=== PATIENT | female | born 1960 | race Caucasian/White ===

== ENCOUNTER → 2018-08-28 09:27 | Outpatient (CLI) | payer BC, SELFPAY ==
--- NOTE | 2018-08-28 09:34 | US_ITS ---
STUDY: RENAL ULTRASOUND - COMPLETE REASON FOR EXAM: Female, 58 years old. History of renal cyst. TECHNIQUE: Ultrasound evaluation of the kidneys was performed with real-time and static beltran-scale imaging. COMPARISON: Comparison is made with prior CT scan dated March 06, 2016. FINDINGS: RIGHT KIDNEY: Normal location of the right kidney, which is normal in size. The right kidney measures 10.5 cm x 5 cm x 5.7 cm. There is a normal cortex of the right kidney. The renal cortex measures 1.9 cm. There is a 7 mm x 5 mm x 8 mm renal cyst. This is in the lower pole. There are no right renal calculi. There is mild hydronephrosis of the right kidney. DISTAL RIGHT URETER: There is non-visualization of the distal right ureter. There is no demonstrated right ureterovesical junction calculus. There is a visualized right ureteral jet. LEFT KIDNEY: Normal location of the left kidney, which is normal in size. The left kidney measures 11.4 cm x 6.6 cm x 4.5 cm. There is a normal cortex of the left kidney. The renal cortex measures 2.0 cm. There is no left renal mass or cyst. There are no left renal calculi. There is no left hydronephrosis. DISTAL LEFT URETER: There is non-visualization of the distal left ureter. There is no demonstrated left ureterovesical junction calculus. There is a visualized left ureteral jet. BLADDER: The distended urinary bladder has a volume of 19.3 ml. There is a normal wall thickness of the distended urinary bladder. There is no demonstrated mass within the urinary bladder. There are no demonstrated bladder calculi. US/Kidney and Bladder IMPRESSION: Mild right hydronephrosis. Subcentimeter right renal cyst. Electronically Signed: Ricky Bhat MD at 14:44 EST , Service support ,
== END ==
PROVIDERS: Family Provider Family Medicine; PCP Family Medicine; Referring Provider Urology; Visit Provider Urology
DX: N28.1 Cyst of kidney, acquired (principal)
CPT/HCPCS: 76770

== ENCOUNTER → 2020-11-10 20:17 | Outpatient (CLI) | payer BC, SELFPAY | PROVIDERS: PCP Family Medicine; Referring Provider Psychiatry & Neurology Sleep Medicine; Visit Provider Psychiatry & Neurology Sleep Medicine | DX: G47.33 Obstructive sleep apnea (adult) (pediatric) (principal); G47.10 Hypersomnia, unspecified; Z99.89 Dependence on other enabling machines and devices | CPT/HCPCS: 95810 ==

== ENCOUNTER → 2021-11-11 | Outpatient (CLI) | payer BC, SELFPAY ==
--- NOTE | 2021-11-11 16:06 | US_ITS ---
INDICATION: KIDNEY CYST EXAMINATION: US Kidney(s) complete (eg, kidneys and bladder) TECHNIQUE: Santacruz scale and color doppler images were obtained of the kidneys. COMPARISON: None. FINDINGS: RIGHT KIDNEY: Measures 10.6 cm in length.. There is no hydronephrosis. No shadowing calculus, focal mask or perinephric collection is demonstrated. There is a simple 8 mm anechoic cyst. LEFT KIDNEY: Measures 10.6 cm in length.. There is no hydronephrosis. No shadowing calculus, focal lesion or perinephric collection is demonstrated. URINARY BLADDER: No acute abnormality. US/Kidney and Bladder IMPRESSION: Normal renal ultrasound. Simple 8 mm cyst in the right kidney. Electronically Signed: Cooper Wallace MD at 17:05 EDT ,
== END | disposition home or self-care (01) ==
PROVIDERS: PCP Family Medicine; Referring Provider Urology; Visit Provider Urology
DX: N28.1 Cyst of kidney, acquired (principal)
CPT/HCPCS: 76770

== ENCOUNTER 2022-11-10 11:12 | Emergency (ER) | payer BC, SELFPAY ==
[2022-11-10 11:13] VITALS: BP 152/92; PULSE 79; RESP 18; TEMP 36.1; O2SAT 98
--- NOTE | 2022-11-10 11:42 | EKG12_ITS ---
Test Reason : CP Blood Pressure : / mmHG Vent. Rate : 072 BPM Atrial Rate : 072 BPM P-R Int : 168 ms QRS Dur : 088 ms QT Int : 406 ms P-R-T Axes : 038 020 046 degrees QTc Int : 444 ms Normal sinus rhythm Normal ECG Confirmed by KIERA DE LEON, SEBAS ([id number]), electronic news gathering editor FLOYD PANDA ([id number]) on 11/13/2022 2:39:57 PM Referred By: LEAH/ORION Confirmed By:KAREN QURESHI MD
--- NOTE | 2022-11-10 11:50 | EX.ED.DYSGE1 ---
HPI <HELENE Carcamo - Last Filed: 11/10/22 14:50> History of Present Illness Chief Complaint: Chest Pain Narrative Narrative: Patient is a 62-year-old female with history of hypertension, hyperlipidemia, hypothyroidism, diabetes who presents to the emergency department with 1 to 2 hours of epigastric pain that radiates to her back that occurred yesterday. Patient states for the last 48 hours has been very stressed she had a lot of work, things on my plate. Patient states yesterday she was relaxing, she was resting when she felt pain to her epigastric area that radiated to her back, she felt cold sweats, nauseous. She did get up and help her do chores, she states that she continued to have the pain, she then went back inside, the nausea and sweating decreased, she then fell asleep. She states she woke up today, she says she feels bruised in her epigastric area however she has no pain, sweats, nausea or vomiting today. Patient is a former smoker, she quit 20 years ago. She drinks occasionally. Last stress test was multiple years ago. [facility] <HELENE Carcamo - Last Filed: 11/10/22 14:50> [facility] Medical History (Updated 11/10/22 @ 14:31 by HELENE Carcamo) Diabetes HTN (hypertension) Hypothyroid Home Medications estradiol 0.5 mg tablet (Estrace) 1 mg PO DAILY 11/08/13 [History Last Taken 11/08/13 01:00 1] levothyroxine 25 mcg tablet 50 mcg PO DAILY 11/08/13 [History Last Taken 11/06/13 1] modafinil 200 mg tablet 200 mg PO DAILY 11/08/13 [History Last Taken 11/06/13 1] metformin 500 mg tablet,extended release 24 hr 500 mg PO BID 03/06/16 [History Last Taken Unknown] alirocumab 75 mg/mL subcutaneous pen injector (Praluent Pen) 75 mg subcut Q14D 11/10/22 [History Last Taken Unknown] cyclobenzaprine 10 mg tablet 10 mg PO TID PRN Muscle Spasm 11/10/22 [History Last Taken Unknown] empagliflozin 10 mg tablet 10 mg PO DAILY 11/10/22 [History Last Taken Unknown] gabapentin 100 mg tablet 100 mg PO TID 11/10/22 [History Last Taken Unknown] hydrochlorothiazide 25 mg tablet 25 mg PO DAILY 11/10/22 [History Last Taken Unknown] semaglutide 0.25 mg or 0.5 mg (2 mg/1.5 mL) subcutaneous pen injector (Ozempic) 0.5 mg subcut QWEEK 11/10/22 [History Last Taken Unknown] venlafaxine 150 mg tablet,extended release 24 hr 150 mg PO DAILY 11/10/22 [History Last Taken Unknown] venlafaxine 75 mg tablet 75 mg PO DAILY 11/10/22 [History Last Taken Unknown] Allergy/AdvReac Type Severity Reaction Status Date / Time moxifloxacin [From Avelox] Allergy Severe Other Verified 11/10/22 11:15 adhesive tape Allergy Rash Verified 11/10/22 11:15 grass pollen Allergy Sneezing Verified 11/10/22 11:15 tree and shrub pollen Allergy Sneezing Verified 11/10/22 11:15 amoxicillin trihydrate AdvReac Diarrhea Verified 11/10/22 11:15 [From Augmentin] morphine AdvReac Itching, Verified 11/10/22 11:15 Jaw/neck pain, angry feeling potassium clavulanate AdvReac Diarrhea Verified 11/10/22 11:15 [From Augmentin] Social History Smoking Status: Former smoker ROS <HELENE Carcamo - Last Filed: 11/10/22 14:50> ROS ED ROS Narrative Constitutional: Negative for fever, chills, weight loss, weakness Eyes: Negative for vision loss, vision change, double vision ENT: Negative for any sore throat, ear pain, congestion Cardiovascular: Negative for any tightness, palpitations. Positive chest pain, epigastric pain, diaphoresis Respiratory: Negative for any cough, sputum production, hemoptysis, dyspnea, dyspnea on exertion, orthopnea Gastrointestinal: Negative for any abdominal pain, vomiting, diarrhea, constipation, blood in stool, blood in vomit. Positive for nausea : Negative for any urinary frequency, dysuria, retention, blood in urine Muscle skeletal: Negative for any muscle joint pain, stiffness, myalgias, arthralgias, neck pain, back pain Neurological: Negative for any headache, syncope, numbness or tingling, dizziness Skin: Negative for any rashes, lumps, itching, abrasions, lacerations Psychiatric: Negative for any depression, anxiety, stress, suicidal ideation, homicidal ideation Hematologic: Negative for any easy bruising, excessive bruising, easy bleeding Allergies: Negative for any eczema, hives, rash EXAM <HELENE Carcamo - Last Filed: 11/10/22 14:50> Physical Exam Narrative Exam Narrative: Vital signs reviewed. Patient at this time feels generally well. Patient is in no distress. Patient is in no pain at this time. HEET: Head normocephalic atraumatic, TMs clear bilaterally. Posterior pharynx is clear, moist mucous membranes. Nares clear bilaterally. Neck: Supple with no lymphadenopathy or tenderness. No signs of meningismus, negative jolt sign. Cardiac: Regular rate and rhythm no murmurs gallops or rubs, equal peripheral pulses bilaterally. Respiratory: Lungs clear to auscultation bilaterally. No chest tenderness. Abdomen: Soft, nontender, nondistended. No abdominal bruit or pulsatile masses. No hepatosplenomegaly Extremities: No peripheral edema, no signs of gross trauma or deformity. Active full range of motion of all extremities. Neuro: Cranial nerves II through XII intact, no focal neurological deficits. Skin: Clean dry and intact with no rash, purpura, petechiae, vesicles or pustules. Backs/flank: No CVA tenderness, no midline spinal tenderness, no deformity. Psych: Normal mood and affect. No SI, HI or acute psychosis. Const Vital Signs: 11/10/22 11:13 11/10/22 11:17 Temperature 97 F L Temperature Source Temporal Pulse Rate 79 Respiratory Rate 18 Respiratory Effort Normal Non-Labored Blood Pressure 152/92 H Blood Pressure Mean 112 Pulse Ox 98 Oxygen Delivery Method Room Air <Dr. Pam Parekh DO - Last Filed: 11/10/22 16:35> Physical Exam Const Vital Signs: 11/10/22 11:13 11/10/22 11:17 Temperature 97 F L Temperature Source Temporal Pulse Rate 79 Respiratory Rate 18 Respiratory Effort Normal Non-Labored Blood Pressure 152/92 H Blood Pressure Mean 112 Pulse Ox 98 Oxygen Delivery Method Room Air MDM <HELENE Carcamo - Last Filed: 11/10/22 14:50> [facility] Lab Data Labs: Laboratory Results - last 24 hr 11/10/22 11/10/22 11/10/22 11:20 11:20 12:45 WBC 9.7 RBC 4.38 Hgb 13.3 Hct 39.4 MCV 90.0 MCH 30.4 MCHC 33.8 RDW Std Deviation 42.2 RDW Coeff of Nate 12.8 Plt Count 371 MPV 9.6 Immature Gran % (Auto) 0.200 Neut % (Auto) 55.5 Lymph % (Auto) 32.5 [place] % (Auto) 8.4 Eos % (Auto) 2.7 Baso % (Auto) 0.7 Absolute Neuts (auto) 5.4 Absolute Lymphs (auto) 3.14 Nucleated RBC % 0 Sodium 142 Potassium 3.0 L Chloride 102 Carbon Dioxide 29.0 Anion Gap 11 BUN 9 Creatinine 0.63 Estim Creat Clear Calc 88.88 Est GFR (MDRD) Af Amer 122 Est GFR (MDRD) Non-Af 101 BUN/Creatinine Ratio 14.3 Glucose 152 H Calcium 8.6 Total Bilirubin 0.10 L AST 46 H ALT 70 H Alkaline Phosphatase 183 H Troponin I High Sens 4 5 Total Protein 7.4 Albumin 3.5 Globulin 3.9 Albumin/Globulin Ratio 0.9 Lipase 38 Urine Color Urine Clarity Urine pH Ur Specific [place] Urine Protein Urine Glucose (UA) Urine Ketones Urine Occult Blood Urine Nitrite Urine Bilirubin Urine Urobilinogen Ur Leukocyte Esterase Urine RBC Urine WBC Ur Squamous Epith Cells Urine Bacteria Urine Mucus 11/10/22 14:15 WBC RBC Hgb Hct MCV MCH MCHC RDW Std Deviation RDW Coeff of Nate Plt Count MPV Immature Gran % (Auto) Neut % (Auto) Lymph % (Auto) [place] % (Auto) Eos % (Auto) Baso % (Auto) Absolute Neuts (auto) Absolute Lymphs (auto) Nucleated RBC % Sodium Potassium Chloride Carbon Dioxide Anion Gap BUN Creatinine Estim Creat Clear Calc Est GFR (MDRD) Af Amer Est GFR (MDRD) Non-Af BUN/Creatinine Ratio Glucose Calcium Total Bilirubin AST ALT Alkaline Phosphatase Troponin I High Sens Total Protein Albumin Globulin Albumin/Globulin Ratio Lipase Urine Color Yellow Urine Clarity Sl. Cloudy Urine pH 7.0 Ur Specific [place] 1.005 Urine Protein Negative Urine Glucose (UA) 250 H Urine Ketones Negative Urine Occult Blood Negative Urine Nitrite Negative Urine Bilirubin Negative Urine Urobilinogen Normal Ur Leukocyte Esterase Negative Urine RBC 0 SEEN Urine WBC 0 SEEN Ur Squamous Epith Cells 0-5 SEEN Urine Bacteria 0 SEEN Urine Mucus 0 SEEN Radiography Diagnostic Testing: Clinical Impression(s) from Imaging Studies Chest X-Ray 11/10/22 11:55 IMPRESSION: No acute findings in the chest. Electronically Signed: Hakeem Michel MD at 12:08 EDT , Gallbladder Ultrasound 11/10/22 12:30 IMPRESSION: 1. Mild right hydronephrosis. Etiology is unknown. CT IVP will help clarify. 2. Multiple gallstones with abnormal gallbladder wall thickening but no pericholecystic fluid and negative sonographic Hicks''s sign. 3. Mild diffuse hepatic steatosis. Electronically Signed: Hakeem Michel MD at 13:55 EDT , EKG Normal sinus rhythm: Attestation: I personally reviewed and interpreted this EKG as follows: Comments: Normal sinus rhythm, rate of 72 bpm, SD interval 168 ms, QRS durations 88 ms, no acute ST elevation, no acute infarct noted. Treatment and Re-Evaluation :: All radiologic examinations were read, reviewed by the emergency department attending. From these reads, a plan of care will be put in place. Patient received a full cardiac work-up. Patient had negative EKG which was normal, patient's troponins were negative, there is no evidence suspect any ACS, [place]. Patient's total heart score is 2, there is no evidence of suspect any acute cardio pathology. Patient's laboratory values showed a normal CBC, patient's chemistries did show some transaminitis with AST of 46, ALT of 70 with an alkaline phosphatase of 183. Secondary to this, was concern for gallstones, acute cholecystitis, choledocholithiasis. These were on the differential. I did order a right upper quadrant ultrasound, this showed mild right hydronephrosis. Multiple gallstones with abnormal gallbladder wall thickening but no pericholecystic fluid and negative sonogram Hicks sign. Mild diffuse hepatic steatosis. Patient did receive a urinalysis that was negative for infection. There is no evidence suspect any renal colic, obstructive stone. Patient does have a urologist. At this time, I do believe the patient is stable for discharge. There is no acute surgical or medical reason for admission. I did speak with the patient at length, she will be referred to a surgeon for follow-up of the gallbladder, she will also be following up with her urologist secondary to the hydronephrosis. She is happy with the plan of care, all questions were answered. She was given return precautions. I did speak with the patient's as well. Stable for discharge <Dr. Pam Parekh, DO - Last Filed: 11/10/22 16:35> [facility] MDM Narrative Medical decision making narrative: I have personally performed a face to face assessment of the patient and have reviewed the ISSA Note. I performed a substantive portion of the visit including all aspects of the following. My toussaint findings include: History is Patient is a 62-year-old female with history of hypertension presenting with an episode of epigastric abdominal pain rating to her back yesterday with associated diaphoresis. She had nausea but no vomiting. She has been more sleepy over the past day. She is a dull pain in her epigastric region today and came in for evaluation. Notes the night before symptoms started she did eat a late dinner of spaghetti with meatballs initially thought maybe this was reflux. Denies any fever. Denies any difficulty breathing. Denies any swelling of her legs. No other complaints at this time. Exam is Patient well-appearing. No acute distress. No significant tenderness palpation. Negative Hicks sign. Heart regular rate and rhythm. No chest wall crepitus. Lungs clear to auscultation bilaterally. No peripheral edema appreciated. 2+ bilateral radial and DP pulses. Medical Decision Making Patient evaluated for episode of epigastric pain rating to her back that occurred yesterday. She now just has mild epigastric soreness. Differential includes ACS, pneumonia, pneumothorax, pancreatitis, cholecystitis and GERD. Patient is given IV fluids in the emergency room. CBC is largely normal. EKG is nonischemic. Delta high-sensitivity troponin is normal. I do not think this is ACS. CMP does show a mild transaminitis with an AST of 46 and ALT of 70. This appears to be acute. Her bilirubin is normal. Its possible her symptoms were biliary colic or cholecystitis so a 6 ultrasound of the right upper quadrant is obtained. This shows some nonspecific right mild hydronephrosis, multiple gallstones with abnormal gallbladder wall thickening but no pericholecystic fluid and negative sonographic Hicks sign and mild diffuse hepatic steatosis. Urinalysis shows no blood and given that she is not having any significant pain at this time I have a low suspicion for renal colic as a cause of her symptoms. Is possible she passed a gallstone which is what caused her severe pain yesterday and was causing the lingering transaminitis. Given she does not have a leukocytosis or findings consistent with acute cholecystitis/choledocholithiasis I do not think she requires emergent surgical evaluation. She has a urologist to follow-up with for her mild hydronephrosis. As she is normal kidney function I do not think she requires emergent CT of her abdomen at this time. She is given referral for surgery for follow-up for her gallstones. I do not think there is an acute cardiac process going on from a cardiac standpoint I feel that she can be followed up outpatient. Patient is given a dose of oral potassium for mild hypokalemia in the emergency room. She is given return precautions. She verbalizes agreement understand this plan. Discharged home in stable condition. Other additions or changes: [None] Lab Data Attestation: I reviewed the patient's lab results. Labs: Laboratory Results - last 24 hr 11/10/22 11/10/22 11/10/22 11:20 11:20 12:45 WBC 9.7 RBC 4.38 Hgb 13.3 Hct 39.4 MCV 90.0 MCH 30.4 MCHC 33.8 RDW Std Deviation 42.2 RDW Coeff of Nate 12.8 Plt Count 371 MPV 9.6 Immature Gran % (Auto) 0.200 Neut % (Auto) 55.5 Lymph % (Auto) 32.5 [place] % (Auto) 8.4 Eos % (Auto) 2.7 Baso % (Auto) 0.7 Absolute Neuts (auto) 5.4 Absolute Lymphs (auto) 3.14 Nucleated RBC % 0 Sodium 142 Potassium 3.0 L Chloride 102 Carbon Dioxide 29.0 Anion Gap 11 BUN 9 Creatinine 0.63 Estim Creat Clear Calc 88.88 Est GFR (MDRD) Af Amer 122 Est GFR (MDRD) Non-Af 101 BUN/Creatinine Ratio 14.3 Glucose 152 H Calcium 8.6 Total Bilirubin 0.10 L AST 46 H ALT 70 H Alkaline Phosphatase 183 H Troponin I High Sens 4 5 Total Protein 7.4 Albumin 3.5 Globulin 3.9 Albumin/Globulin Ratio 0.9 Lipase 38 Urine Color Urine Clarity Urine pH Ur Specific [place] Urine Protein Urine Glucose (UA) Urine Ketones Urine Occult Blood Urine Nitrite Urine Bilirubin Urine Urobilinogen Ur Leukocyte Esterase Urine RBC Urine WBC Ur Squamous Epith Cells Urine Bacteria Urine Mucus 11/10/22 14:15 WBC RBC Hgb Hct MCV MCH MCHC RDW Std Deviation RDW Coeff of Nate Plt Count MPV Immature Gran % (Auto) Neut % (Auto) Lymph % (Auto) [place] % (Auto) Eos % (Auto) Baso % (Auto) Absolute Neuts (auto) Absolute Lymphs (auto) Nucleated RBC % Sodium Potassium Chloride Carbon Dioxide Anion Gap BUN Creatinine Estim Creat Clear Calc Est GFR (MDRD) Af Amer Est GFR (MDRD) Non-Af BUN/Creatinine Ratio Glucose Calcium Total Bilirubin AST ALT Alkaline Phosphatase Troponin I High Sens Total Protein Albumin Globulin Albumin/Globulin Ratio Lipase Urine Color Yellow Urine Clarity Sl. Cloudy Urine pH 7.0 Ur Specific [place] 1.005 Urine Protein Negative Urine Glucose (UA) 250 H Urine Ketones Negative Urine Occult Blood Negative Urine Nitrite Negative Urine Bilirubin Negative Urine Urobilinogen Normal Ur Leukocyte Esterase Negative Urine RBC 0 SEEN Urine WBC 0 SEEN Ur Squamous Epith Cells 0-5 SEEN Urine Bacteria 0 SEEN Urine Mucus 0 SEEN Radiography Diagnostic Testing: Clinical Impression(s) from Imaging Studies Chest X-Ray 11/10/22 11:55 IMPRESSION: No acute findings in the chest. Electronically Signed: Hakeem Michel MD at 12:08 EDT Reading Location ID and State: [address] [place] [address] , Service support , Gallbladder Ultrasound 11/10/22 12:30 IMPRESSION: 1. Mild right hydronephrosis. Etiology is unknown. CT IVP will help clarify. 2. Multiple gallstones with abnormal gallbladder wall thickening but no pericholecystic fluid and negative sonographic Hicks''s sign. 3. Mild diffuse hepatic steatosis. Electronically Signed: Hakeem Michel MD at 13:55 EDT Reading Location ID and State: [facility] / [place] , Service support , Discharge Plan Triage Chief Complaint: Chest Pain ED Midlevel Provider: Connor Beaver ED Provider: Pam Parekh Dx/Rx/DC Orders Clinical Impression: Transaminitis, Gallstones, Acute epigastric pain, Hydronephrosis Instructions: Kidney Problems, ED Gallstones with Biliary Colic Prescriptions: No Action levothyroxine 25 MCG tablet 50 mcg PO DAILY Label Comments: HYPOTHYROID modafinil 200 MG tablet 200 mg PO DAILY Label Comments: TO HELP STAY AWAKE Rx Instructions: 1.5 tabs daily estradiol [Estrace] 0.5 MG tablet 1 mg PO DAILY Label Comments: ESTROGEN REPLACEMENT metformin 500 MG tablet extended release 24 hr 500 mg PO BID Label Comments: diabetes venlafaxine [Effexor] 75 mg Tablet 75 mg PO DAILY hydrochlorothiazide 25 mg Tablet 25 mg PO DAILY venlafaxine 150 mg Tablet Extended Release 24hr 150 mg PO DAILY Ozempic 0.25 mg or 0.5 mg(2 mg/1.5 mL) Pen Injector 0.5 mg SUBCUT QWEEK Rx Instructions: took 5/5 am gabapentin 100 mg Tablet 100 mg PO TID Praluent Pen 75 mg/mL Pen Injector 75 mg SUBCUT Q14D Rx Instructions: took sunday empagliflozin 10 mg Tablet 10 mg PO DAILY cyclobenzaprine [Flexeril] 10 mg Tablet 10 mg PO TID PRN (Reason: Muscle Spasm) Primary Care Provider: Shan Lutz Referrals: Bennett Paz MD [Med Staff - Active Staff] - (Please follow-up for concerns about your gallbladder) Shan Lutz MD [Primary Care Provider] - Activity Restrictions/Additional Instructions: Today, there was no evidence of any cardiac involvement. Your liver enzymes were slightly elevated, please follow-up with surgery concerning for a gallbladder stone. Please follow-up with your urologist secondary to your right hydronephrosis. Return for any worsening symptoms. Disposition Disposition: Home, Self Care Discharge Date/Time: 11/10/22 14:57
[2022-11-10] MEDS: Mag Hydrox/Al Hydrox/Simeth 30 ML UDC PO (11:53)
[2022-11-10] MEDS: 0.9% Normal Saline 1,000 ML 1000 ML IV (11:53)
--- NOTE | 2022-11-10 11:55 | RAD_ITS ---
EXAM: XR CHEST, 2 VIEWS CLINICAL INDICATION: Chest pain. TECHNIQUE: Frontal and lateral views of the chest. COMPARISON: No relevant prior studies available. FINDINGS: LUNGS AND PLEURAL SPACES: Unremarkable. No pneumothorax. No effusion. No suspicious infiltrates. HEART: Unremarkable. Cardiac silhouette not enlarged. MEDIASTINUM: Central airways and mediastinal contour are unremarkable. BONES/JOINTS: Minimal anterior wedging of T8, T11 and L1 vertebral bodies are presumably from remote injury. SOFT TISSUES: Unremarkable. RAD/Chest PA and Lateral IMPRESSION: No acute findings in the chest. Electronically Signed: Hakeem Michel MD at 12:08 EDT ,
[2022-11-10 11:56] LABS: Absolute Lymphocyte Count 3.14 X10^3/uL (0.83-4.51); Absolute Neutrophil Count 5.4 X10^3/uL (2.0-7.7); Basophil# 0.07 X10^3/uL; Basophil% 0.7 % (0-1); Eosinophil# 0.26 X10^3/uL; Eosinophils% 2.7 % (0-5); Hematocrit 39.4 % (37-47); Hemoglobin 13.3 g/dL (12.0-15.0); Lymphocyte # 3.14 X10^3/ul (0.83-4.51); Lymphocyte % 32.5 % (19-41); Mean Corp Hgb Conc 33.8 g/dL (32-36); Mean Corpuscular Hgb 30.4 pg (27.0-32.0); Mean Platelet Vol. 9.6 fl (6.2-12.0); Monocyte# 0.81 X10^3/uL; Monocyte% 8.4 % (0-10); NRBC Flagged by Analyzer 0 % (0-5); Neutrophil # 5.35 X10^3/uL (2.7-7.7); Neutrophil % 55.5 % (47-70); Platelet Count 371 K/mm3 (150-450); RBC Distribution Width CV 12.8 % (11.6-14.6); RBC Distribution Width SD 42.2 fl (35.1-43.9); Red Blood Count 4.38 M/mm3 (4.2-5.4); White Blood Count 9.7 K/mm3 (4.4-11.0)
[2022-11-10 12:21] LABS: ALB/GLOB Ratio 0.9 RATIO (0.9-2.4); AST(SGOT) 46 U/L (15-37); Alanine Aminotransfer ALT/SGPT 70 U/L (13-56); Albumin, Serum 3.5 g/dL (3.2-5.0); Alkaline Phosphatase 183 U/L (45-117); Anion Gap 11 (5-15); BUN 9 mg/dL (7-18); BUN/Creat Ratio 14.3 RATIO (10-20); Calcium,Total 8.6 mg/dL (8.5-10.1); Chloride 102 mmol/L (98-107); Creatinine, Serum 0.63 mg/dL (0.55-1.02); EST Glomerular Filtration Rate 101 mL/min (>60); Est Glom Filt Rate - Afr Amer 122 mL/min (>60); Estimated Creatinine Clearance 88.88 ml/min; Globulin 3.9 g/dL (2.2-4.2); Glucose 152 mg/dL (74-106); Lipase 38 U/L (13-75); Protein, Total 7.4 g/dL (6.4-8.2); Sodium Level 142 mmol/L (136-145); Troponin-I HS 4 pg/mL (3.0-54.0)
--- NOTE | 2022-11-10 12:30 | US_ITS ---
STUDY: ABDOMINAL ULTRASOUND - RIGHT UPPER QUADRANT REASON FOR VISIT: Female, 62 years [address] abdominal pain[address] abdomen and pelvis with contrast 10/05/2015. MR abdomen with and without contrast 06/04/2016. TECHNIQUE: Ultrasound evaluation of the right upper quadrant was performed with real-time and static stoll-scale imaging. TECHNICAL QUALITY: Adequate. COMPARISON: None. FINDINGS: Liver: The liver measures 17.2 cm. Mild increase in echogenicity of liver parenchyma due to fatty infiltration. The bile ducts are within normal limits. There is hepatic color flow. The direction of portal flow is hepatopetal. There is no demonstrated mass lesion. Gallbladder: Normal distended gallbladder. The gallbladder wall measures 9 mm. There is a negative sonographic Hicks''s sign. There is no pericholecystic fluid. There are multiple gallstones. Common Bile Duct (C.B.D.): The common bile duct measures 4 mm. Pancreas: Normal size of the head, body and tail of the pancreas. There is normal echogenicity of the pancreas. There is no demonstrated pancreatic mass or cyst. Right Kidney: Normal size of the right kidney. The right kidney measures 10.9 x 6.2 cm. Normal renal cortex. The right cortex measures 1.6 cm. There is no demonstrated renal mass or cyst. There is mild hydronephrosis. US/Gallbladder IMPRESSION: 1. Mild right hydronephrosis. Etiology is unknown. CT IVP will help clarify. 2. Multiple gallstones with abnormal gallbladder wall thickening but no pericholecystic fluid and negative sonographic Hicks''s sign. 3. Mild diffuse hepatic steatosis. Electronically Signed: Hakeem Michel MD at 13:55 EDT ,
[2022-11-10] MEDS: Potassium Chloride Oral Tablet 20 MEQ 40 MEQ PO (12:44)
[2022-11-10 13:09] LABS: Troponin-I HS 5 pg/mL (3.0-54.0)
[2022-11-10 14:28] LABS: Bacteria 0 SEEN /hpf (None Seen); Mucous, Urine 0 SEEN /hpf (<or=2+); Red Blood Cells-Urine 0 SEEN /hpf (0-5); White Blood Cells 0 SEEN /hpf (0-5)
[2022-11-10 14:38] LABS: Color, Urine Yellow (Yellow); Glucose, Dipstick 250 mg/dl (Normal); Ketone-Dipstick Negative (Negative); Leukocyte Esterase-Dipstick Negative /ul (Negative); Nitrite-Dipstick Negative (Negative); Occult Blood-Urine Negative /ul (Negative); Protein-Dipstick Negative (Negative); Specific Gravity, Urine 1.005 (1.002-1.030); Urine Bilirubin Dipstick Negative (Negative); Urine Clarity Sl. Cloudy (Clear); Urine Urobilinogen Normal (Normal)
[2022-11-10 14:48] LABS: Squamous Epithelial Cells - UA 0-5 SEEN /hpf (5-10)
== END 2022-11-10 14:57 | disposition home or self-care (01) ==
PROVIDERS: Nurse Practitioner; Emergency Provider Emergency Medicine; PCP Family Medicine; Visit Provider Emergency Medicine
DX: R74.01 Elevation of levels of liver transaminase levels (principal); E11.9 Type 2 diabetes mellitus without complications; K80.20 Calculus of gallbladder without cholecystitis without obstruction; I10 Essential (primary) hypertension; E78.5 Hyperlipidemia, unspecified; N13.30 Unspecified hydronephrosis; Z87.891 Personal history of nicotine dependence; E03.9 Hypothyroidism, unspecified
CPT/HCPCS: 71046; 76705; 80053; 81001; 83690; 84484; 85025; 93005; 96360; 99285; J7030; A4216